=== PATIENT | male | born 1930 | race Caucasian/White ===

== ENCOUNTER 2016-12-15 09:55 | Inpatient (IN) | payer BC ==
--- NOTE | 2016-12-15 10:58 | PDOC ---
History of Present Illness - History of Present Illness Initial Comments: 12/15/16 11:36 Patient is an 86 year old male with no significant medical hx (takes aspirin in the morning) who is presenting to the ED with four days of frequent diarrhea and abdominal pain. The patient complains of abdominal pain to the lower quadrants bilaterally since the onset of his symptoms. He also reports one episode of vomiting four days ago. Daughter states that the patient might have endorsed blood in his stool to another family member who isn't present during interview. The patient denies any recent ravel, antibiotic use, or drinking from any lakes or streams. Denies fever, chills, back pain, constipation, chest pain, dysuria, or hematuria. Social Hx: No tobacco use. Reported ETOH use. Allergies: Penicillin <Renae Bautista - Last Filed: 12/15/16 12:51> - General History Source: Patient, Old Records Exam Limitations: No Limitations <Kassi Florez - Last Filed: 12/15/16 12:59> - General Chief Complaint: Pain Stated Complaint: DIARRHEA Time Seen by Provider: 12/15/16 10:58 Past History <Renae Bautista - Last Filed: 12/15/16 12:51> - Past Medical History Other medical history: none - Psycho/Social/Smoking Cessation Hx Anxiety: No Suicidal Ideation: No Smoking History: Never smoked Have you smoked in the past 12 months: No Information on smoking cessation initiated: No Hx Alcohol Use: No Drug/Substance Use Hx: No Substance Use Type: None <Kassi Florez - Last Filed: 12/15/16 12:59> - Past Medical History Allergies/Adverse Reactions: Allergies Allergy/AdvReac Type Severity Reaction Status Date / Time Penicillins Allergy Swelling Verified 12/15/16 10:04 Home Medications: Ambulatory Orders Aspirin [ASA -] 325 mg PO DAILY 12/24/13 Review of Systems - Review of Systems Comments:: 12/15/16 11:42 GENERAL/CONSTITUTIONAL: No fever or chills. No weakness. HEAD, EYES, EARS, NOSE AND THROAT: No change in vision. No ear pain or discharge. No sore throat. CARDIOVASCULAR: No chest pain or shortness of breath. RESPIRATORY: No cough, wheezing, or hemoptysis. GASTROINTESTINAL: Diarrhea, abdominal pain, nausea, vomiting. No constipation. GENITOURINARY: No dysuria, frequency, or change in urination. MUSCULOSKELETAL: No joint or muscle swelling or pain. No neck or back pain. ENDOCRINE: No increased thirst. No abnormal weight change. SKIN: No rash NEUROLOGIC: No headache, vertigo, loss of consciousness, or change in strength/ sensation. <MicheleRenae - Last Filed: 12/15/16 12:51> *Physical Exam - Vital Signs Last Vital Signs Temp Pulse Resp BP Pulse Ox 98.0 F 103 H 18 113/86 100 12/15/16 10:05 12/15/16 10:05 12/15/16 10:12/15/16 10:05 12/15/16 10:05 - Physical Exam Comments: 12/15/16 11:43 GENERAL: Awake, alert, and fully oriented, in no acute distress HEAD: No signs of trauma EYES: PERRLA, EOMI, sclera anicteric, conjunctiva clear ENT: Auricles normal inspection, hearing grossly normal, nares patent, oropharynx clear without exudates. Moist mucosa NECK: Normal ROM, supple, no lymphadenopathy, JVD, or masses LUNGS: Breath sounds equal, clear to auscultation bilaterally. No wheezes, and no crackles HEART: Regular rate and rhythm, normal S1 and S2, no murmurs, rubs or gallops ABDOMEN: Soft, bilateral lower quadrant tenderness left greater than right, normoactive bowel sounds. No guarding, no rebound. No masses EXTREMITIES: Normal range of motion, no edema. No clubbing or cyanosis. No cords, erythema, or tenderness NEUROLOGICAL: Cranial nerves II through XII grossly intact. Normal speech, normal gait SKIN: Warm, Dry, normal turgor, no rashes or lesions noted. HEMATOLOGIC/LYMPHATIC: No anemia, easy bleeding, or history of blood clots. ALLERGIC/IMMUNOLOGIC: No hives or skin allergy. <MicheleRenae - Last Filed: 12/15/16 12:51> - Vital Signs Last Vital Signs Temp Pulse Resp BP Pulse Ox 98.0 F 103 H 18 113/86 100 12/15/16 10:05 12/15/16 10:05 12/15/16 10:05 12/15/16 10:05 12/15/16 10:05 <Kassi Florez - Last Filed: 12/15/16 12:59> ED Treatment Course - LABORATORY CBC & Chemistry Diagram: 12/15/16 11:26 12/15/16 11:26 - RADIOLOGY Radiograph Interpretation: 12/15/16 11:58 Chest X-Ray Impression: No evidence of active pulmonary disease. Reported By: Danilo Land MD 12/15/16 12:51 Abdomen/Pelvis CT Impression: Findings are consistent with moderate rectosigmoid colitis with surrounding inflammatory changes but without free air or abscess. Significant rectal impaction presumably resulting in stercoral proctitis. Bladder wall thickening prostatic enlargement. Other findings as described. Clinical correlation advised. Reported By: Alex Hood MD <Renae Bautista - Last Filed: 12/15/16 12:51> - LABORATORY CBC & Chemistry Diagram: 12/15/16 11:26 12/15/16 11:26 <Kassi Florez - Last Filed: 12/15/16 12:59> Medical Decision Making - Medical Decision Making 12/15/16 11:20 86 y/o male with no reported PMHx presents to the ED with 4 day h/o lower abdominal pain and copious diarrhea. DDx includes but is not limited to: colitis, diverticulitis, anemia, dehydration, electrolyte abnormality, toxic/ metabolic derangement. Plan: 1. Labs 2. IVf for hydration 3. Pain management 4. CT abdomen/pelvis 5. Observe and re-evaluate 12/15/16 12:56 Addendum: Labs are reviewed and are noted in the EMR. The WBC is normal howver there is a bandemia of 16%. Ct scan of the abdomen and pelvis shows colonic colitis. Will get blood cultures and lactate, and will order flagyl and levaquin. The case was discussed with is PC, Dr Constantino. Will admit to inpatient for IV antibiotics and follow-up of blood cultures. <Kassi Florez - Last Filed: 12/15/16 12:59> *DC/Admit/Observation/Transfer - Attestations Scribe Attestion: 12/15/16 11:43 Documentation prepared by Renae Bautista, acting as medical office assistant for Kassi Florez MD. <Renae Bautista - Last Filed: 12/15/16 12:51> - Discharge Dispostion Admit: Yes - Attestations Physician Attestion: 12/15/16 11:22 I, Dr. Kassi Florez, attest that the scribes documentation that appears above has been prepared under my direction and personally reviewed by me in its entirety. I confirmed that the note above accurately reflects all work, treatment, procedures, and medical decision-making performed by me. <Kassi Florez - Last Filed: 12/15/16 12:59> Diagnosis at time of Disposition: Lower abdominal pain, Diarrhea, Colitis, Bandemia - Discharge Dispostion Condition at time of disposition: Stable
[2016-12-15] MEDS ORDERED: SODIUM CHLORIDE 1,000 ML IV STA (11:14)
[2016-12-15 11:37] LABS: MCH 28.4 pg (25.7-33.7); PLATELET COUNT 192 K/MM3 (134-434); RDW 15.7 % (11.9-15.9); WHITE BLOOD COUNT 7.4 K/mm3 (4.0-10.0)
[2016-12-15 12:01] LABS: ANION GAP 11 (8-16); BILIRUBIN,TOTAL 1.1 mg/dL (0.2-1.0); CALCIUM 8.4 mg/dL (8.5-10.1); CO2 24 mmol/L (21-32); COCKROFT - GAULT 56.76; GLUCOSE,RANDOM 113 mg/dL (74-106); MAGNESIUM 2.3 mg/dL (1.8-2.4); PHOSPHOROUS 2.6 mg/dL (2.5-4.9); SGOT/AST 23 U/L (15-37); SGPT/ALT 17 U/L (12-78); TOT PROT 5.4 g/dl (6.4-8.2)
[2016-12-15 12:02] LABS: ALK PHOS 61 U/L (45-117); TROPONIN I < 0.02 ng/ml (0.00-0.05)
[2016-12-15 12:39] LABS: PLATELET ESTIMATE ADEQUATE (NORMAL)
[2016-12-15] MEDS ORDERED: METRONIDAZOLE 500 MG PREMIXED 100 ML IVPB ONE ×2 (12:52→13:02)
[2016-12-15] MEDS ORDERED: LEVOFLOXACIN 750 MG IVPB 150 ML IVPB ONE (12:52)
[2016-12-15] MEDS ORDERED: LEVOFLOXACIN 500 MG IVPB 100 ML IVPB ONE (13:03)
--- NOTE | 2016-12-15 13:59 | EKG ---
Test Reason : Blood Pressure : / mmHG Vent. Rate : 080 BPM Atrial Rate : 080 BPM P-R Int : 164 ms QRS Dur : 098 ms QT Int : 368 ms P-R-T Axes : -13 -38 007 degrees QTc Int : 424 ms SINUS RHYTHM WITH OCCASIONAL PREMATURE VENTRICULAR COMPLEXES LEFT AXIS DEVIATION ABNORMAL ECG WHEN COMPARED WITH ECG OF 08-FEB-2010 16:27, NO SIGNIFICANT CHANGE WAS FOUND Confirmed by MAME DOWNEY MD ([id number]) on 12/15/2016 1:59:21 PM Referred By: Confirmed By:MAME DOWNEY MD
[2016-12-15] MEDS ORDERED: LEVOFLOXACIN 250 MG IVPB 50 ML IVPB ONE (15:52)
--- NOTE | 2016-12-15 23:10 | HP ---
Admitting History and Physical - Primary Care Physician PCP: Jesus Constantino - Admission Chief Complaint: Diarrhea History of Present Illness: Pt with diarrhea and lower abdominal discomfort for few days, came to ER with his and daugter. Abd/ pelvis CT scan is c/w colitis. pt was admitted for abtx treatment. History Source: Patient Limitations to Obtaining History: Poor Historian - Past Medical History Additional Past Medical History: Alcohol abuse- he drinks daily 3-5 drink (now vodka) - Smoking History Smoking history: Never smoked Have you smoked in the past 12 months: No - Alcohol/Substance Use Hx Alcohol Use: No Home Medications - Allergies Allergies/Adverse Reactions: Allergies Allergy/AdvReac Type Severity Reaction Status Date / Time Penicillins Allergy Swelling Verified 12/15/16 10:04 - Home Medications Home Medications: Ambulatory Orders Aspirin [ASA -] 325 mg PO DAILY 12/24/13 Review of Systems - Review of Systems Constitutional: denies: Chills, Fever Eyes: denies: Blurred Vision, Double Vision HENT: denies: Difficult Swallowing, Ear Discharge, Ear Pain, Epistaxis, Nasal Congestion Neck: denies: Lumps, Stiffness Cardiovascular: denies: Chest Pain, Edema, Palpitations, Shortness of Breath Respiratory: denies: Cough, Hemoptysis, SOB, Wheezing Gastrointestinal: reports: Diarrhea. denies: Abdominal Pain, Constipation, Dysphagia, Nausea, Rectal Bleeding, Vomiting Genitourinary: denies: Discharge, Dysuria Musculoskeletal: denies: Back Pain, Extremity Pain, Joint Pain Integumentary: denies: Bruising, Erythema, Rash Neurological: denies: Change in LOC, Change in Speech, Confusion Endocrine: denies: Excessive Sweating, Intolerance to Heat Hematology/Lymphatic: denies: Easily Bruised, Excessive Bleeding Psychiatric: denies: Anxiety, Depression Physical Examination Vital Signs: Vital Signs Temperature 98.0 F 12/15/16 10:05 Pulse Rate 80 12/15/16 18:38 Respiratory Rate 18 12/15/16 18:38 Blood Pressure 144/89 12/15/16 18:38 O2 Sat by Pulse Oximetry (%) 97 12/15/16 18:38 Constitutional: Yes: No Distress, Calm Eyes: Yes: Conjunctiva Clear, EOM Intact HENT: Yes: Normocephalic. No: Epistaxis, Rhinnorhea Neck: Yes: Trachea Midline. No: Lymphadenopathy Cardiovascular: Yes: Regular Rate and Rhythm, S1, S2 Respiratory: No: Regular, CTA Bilaterally, Rales Gastrointestinal: Yes: Normal Bowel Sounds, Soft, Tenderness (mild, in left and right LQ). No: Tenderness, Rebound ...Rectal Exam: Yes: Deferred Renal/: No: CVA Tenderness - Left, CVA Tenderness - Right Musculoskeletal: No: Joint Stiffness, Joint Swelling, Muscle Pain Extremities: No: Cool, Cyanosis Edema: No Integumentary: No: Erythema, Rash Neurological: Yes: Alert, Oriented, Cran Nerves II-XII Intact Psychiatric: Yes: Alert, Oriented Labs: reviewer Imaging - Results Chest X-ray: Report Reviewed Cat Scan: Report Reviewed Problem List - Problems (1) Acute colitis Code(s): K52.9 - NONINFECTIVE GASTROENTERITIS AND COLITIS, UNSPECIFIED Assessment/Plan IV abtx GI consult AM labs Full liquid diet
[2016-12-15] MEDS ORDERED: SODIUM CHLORIDE 1,000 ML IV SCH (23:15)
[2016-12-16] MEDS: METRONIDAZOLE 500 MG PREMIXED 100 ML IVPB SCH ×5 (00:18→20:50)
[2016-12-16 03:13] VITALS: BMI 24.0
[2016-12-16 08:09] LABS: MCH 28.6 pg (25.7-33.7); MCHC 33.4 g/dl (32.0-35.9); MEAN CELL VOLUME 85.6 fl (80-96); MEAN PLT VOLUME 8.2 fl (7.5-11.1); PLATELET COUNT 168 K/MM3 (134-434); RDW 15.7 % (11.9-15.9); WHITE BLOOD COUNT 5.1 K/mm3 (4.0-10.0)
[2016-12-16 08:39] LABS: ALBUMIN 2.6 g/dl (3.4-5.0); ANION GAP 12 (8-16); BILIRUBIN,TOTAL 0.9 mg/dL (0.2-1.0); CO2 21 mmol/L (21-32); CREATININE 0.7 mg/dL (0.7-1.3); GLUCOSE,RANDOM 89 mg/dL (74-106); SGOT/AST 15 U/L (15-37); SGPT/ALT 13 U/L (12-78)
[2016-12-16 08:40] LABS: ALK PHOS 51 U/L (45-117)
--- NOTE | 2016-12-16 09:46 | PN ---
Progress Note, Physician History of Present Illness: Pt still with lose stool, no abd pain, no fever. Pt w/o cough, CP, N, V. - Current Medication List Current Medications: Active Medications Metronidazole (Flagyl 500mg Premixed Ivpb -) 100 mls @ 100 mls/hr IVPB Q6H-IV ELEN Last Admin: 12/16/16 08:28 Dose: 100 mls/hr Levofloxacin (Levaquin 500 Mg Premixed Ivpb -) 100 mls @ 100 mls/hr IVPB DAILY ELEN Sodium Chloride (Normal Saline -) 1,000 mls @ 50 mls/hr IV ASDIR ELEN Stop: 12/16/16 23:13 Last Admin: 12/16/16 00:17 Dose: 50 mls/hr - Objective Vital Signs: Vital Signs Temperature 99 F 12/16/16 06:54 Pulse Rate 85 12/16/16 06:54 Respiratory Rate 20 12/16/16 06:54 Blood Pressure 154/81 12/16/16 06:54 O2 Sat by Pulse Oximetry (%) 98 12/15/16 23:30 Constitutional: Yes: No Distress, Calm Cardiovascular: Yes: Regular Rate and Rhythm, S1, S2 Respiratory: Yes: Regular, CTA Bilaterally. No: Rales Gastrointestinal: Yes: Normal Bowel Sounds, Soft, Hyperactive Bowel Sounds, Tenderness (minimal in LQs) Edema: No Neurological: Yes: Alert, Oriented Labs: CBC, BMP 12/16/16 07:55 12/16/16 07:15 Problem List - Problems (1) Acute colitis Code(s): K52.9 - NONINFECTIVE GASTROENTERITIS AND COLITIS, UNSPECIFIED (2) Colitis Code(s): K52.9 - NONINFECTIVE GASTROENTERITIS AND COLITIS, UNSPECIFIED (3) Fecal impaction in rectum Code(s): K56.41 - FECAL IMPACTION (4) Lower abdominal pain Code(s): R10.30 - LOWER ABDOMINAL PAIN, UNSPECIFIED Assessment/Plan IV abtx GI consult; case was d/w Dr. Anatoly Rob Colorectal Sx consult. AM labs Full liquid diet.
[2016-12-16] MEDS: LEVOFLOXACIN 500 MG IVPB 100 ML IVPB SCH (10:36)
--- NOTE | 2016-12-16 11:44 | CONSULT ---
Consult Consult Specialty:: colorectal surgery Reason for Consultation:: colitis? fecal impaction? - History of Present Illness Chief Complaint: none History of Present Illness: pt is a 86M who presented with freq diarrhea/incontinence and some lower abd pain. workup in ED includes CT showing large amount of fecal material in rectum and some colitis just proximal to it. Patient had large BM this morning. Patient and his family endorse alot of liquid stool with urgency/incontinence. hx of 3-5 drinks a day? - History Source History Provided By: Patient, Family Member, Medical Record - Alcohol/Substance Use Hx Alcohol Use: No - Smoking History Smoking history: Never smoked Have you smoked in the past 12 months: No Home Medications - Allergies Allergies/Adverse Reactions: Allergies Allergy/AdvReac Type Severity Reaction Status Date / Time Penicillins Allergy Swelling Verified 12/15/16 10:04 - Home Medications Home Medications: Ambulatory Orders Aspirin [ASA -] 325 mg PO DAILY 12/24/13 Family Disease History - Family Disease History Family History: Unremarkable Review of Systems - Review of Systems Constitutional: reports: Loss of Appetite (but no weight loss). denies: Chills , Fever Eyes: denies: Blind Spots, Blurred Vision HENT: denies: Difficult Swallowing, Ear Discharge Neck: denies: Lumps, Pain on Movement Cardiovascular: denies: Chest Pain, Edema Respiratory: denies: Cough, Exercise Intolerance Gastrointestinal: reports: Abdominal Pain, Diarrhea Genitourinary: denies: Burning, Discharge Breasts: denies: Discharge from Nipple, Lumps Musculoskeletal: denies: Back Pain, Crepitus Integumentary: denies: Blister, Bruising Neurological: denies: Change in LOC, Change in Speech Endocrine: denies: Excessive Sweating, Flushing Hematology/Lymphatic: denies: Easily Bruised, Excessive Bleeding Psychiatric: denies: Altered Sleep Pattern, Anxiety Physical Exam Vital Signs: Vital Signs Temperature 97.9 F 12/16/16 10:31 Pulse Rate 76 12/16/16 10:31 Respiratory Rate 20 12/16/16 10:31 Blood Pressure 134/70 12/16/16 10:31 O2 Sat by Pulse Oximetry (%) 98 12/15/16 23:30 Constitutional: Yes: No Distress, Calm Eyes: Yes: Conjunctiva Clear, EOM Intact HENT: Yes: Atraumatic, Normocephalic Neck: Yes: Supple, Trachea Midline Cardiovascular: Yes: Regular Rate and Rhythm Respiratory: Yes: Regular, CTA Bilaterally Gastrointestinal: Yes: Soft. No: Distention, Tenderness ...Rectal Exam: Yes: Other (good sphincter tone. patients bottom area covered with semi solid stool. limited exam but no stool appreciated in rectal vault. could not see any kind of fissure due to stool.) Renal/: No: CVA Tenderness - Left, CVA Tenderness - Right Breast(s): No: Nipple Inversion, Skin Changes Musculoskeletal: No: Joint Stiffness, Joint Swelling Extremities: No: Calf Tenderness, Erythema Integumentary: No: Bruising, Erythema Neurological: Yes: Alert Psychiatric: Yes: Alert Labs: CBC, BMP 12/16/16 07:55 12/16/16 07:15 Imaging - Results Cat Scan: Report Reviewed, Image Reviewed Problem List - Problems (1) Acute colitis Assessment/Plan: colitis on CT likely sterocoral in nature from fecal impaction -his diarrhea could be due to overflow incontinence from fecal impaction -recommend dulcolax suppository QD or QOD. -recommend fiber and increased water intake ulices with alcohol use -needs outpt management of these symptoms -reg diet -colonoscopy as per GI Code(s): K52.9 - NONINFECTIVE GASTROENTERITIS AND COLITIS, UNSPECIFIED (2) Lower abdominal pain Code(s): R10.30 - LOWER ABDOMINAL PAIN, UNSPECIFIED
[2016-12-16 13:33] LABS: URINE APPEARANCE CLEAR; URINE BILIRUBIN NEGATIVE (NEGATIVE); URINE BLOOD NEGATIVE (NEGATIVE); URINE COLOR YELLOW; URINE GLUCOSE (UA) NEGATIVE (NEGATIVE); URINE KETONE 1+ (NEGATIVE); URINE NITRITE NEGATIVE (NEGATIVE); URINE PROTEIN NEGATIVE (NEGATIVE); URINE UROBILINOGEN NEGATIVE E.U./dl (0.2-1.0)
[2016-12-16 13:34] LABS: URINE LEUK ESTERASE TRACE (NEGATIVE)
[2016-12-16 13:35] LABS: URINE MUCUS RARE; URINE RBC 1 /hpf (0-3); URINE WBC <1 /hpf (3-5)
--- NOTE | 2016-12-16 15:54 | CON.GI ---
Consult Consult Specialty:: GI Referred by:: Dr. Jesus Constantino Reason for Consultation:: Abnormal CT scan - History of Present Illness Chief Complaint: Patient poor historian, confused even about where he was and how he got here History of Present Illness: History per chart. 86M admitted for evaluation of diarrhea and lower abdominal dioscomfort. Mr. Ramirez currently denies any complaints and is quite a poor historian. He does not recall his medical history. I obtained more information from his significant other. There has been no rectal bleeding. He has been having loose bowel movements for 5 days. Bowel habits have been reported. The history obtained from the H&P is that he drinks 3-5 vodka drinks per day and confirmed by his significant other. I contacted his daughter Pooja [phone]. She reiterated the above history and says that he does get confused. In review of the [employer] system it appears that he had a colonoscopy performed [place] [address] Villegas that led to the removal of a transverse colon tubular adenoma. - History Source History Provided By: Medical Record Limitations to Obtaining History: Poor Historian - Past Medical History Additional Medical History: left shoulder fracture - Alcohol/Substance Use Hx Alcohol Use: Yes - Smoking History Smoking history: Smoker current status UNK Have you smoked in the past 12 months: No - Social History Usual Living Arrangement: With Significant Other Place of : [facility] History of Recent Travel: No Home Medications - Allergies Allergies/Adverse Reactions: Allergies Allergy/AdvReac Type Severity Reaction Status Date / Time Penicillins Allergy Swelling Verified 12/15/16 10:04 - Home Medications Home Medications: Ambulatory Orders Aspirin [ASA -] 325 mg PO DAILY 12/24/13 Family Disease History - Family Disease History Family History: Unable to Obtain Review of Systems Unable to obtain ROS, reason: Patient confused - Review of Systems Cardiovascular: denies: Chest Pain Gastrointestinal: reports: Diarrhea. denies: Abdominal Pain (currently denies however admitted with complaint of lower abdominal pain) Physical Exam-GI Vital Signs: Vital Signs Temperature 97.4 F L 12/16/16 15:06 Pulse Rate 84 12/16/16 15:06 Respiratory Rate 20 12/16/16 15:06 Blood Pressure 138/76 12/16/16 15:06 O2 Sat by Pulse Oximetry (%) 98 12/15/16 23:30 Constitutional: Yes: Calm Eyes: No: Sclera Icterus Cardiovascular: Yes: Regular Rate and Rhythm, Murmur (+ systolic / holosystoic murmur at left and right sternal border) Respiratory: Yes: Diminished (at bases, poor insp effort) Gastrointestinal Inspection: No: Distention ...Auscultate: Yes: Normoactive Bowel Sounds ...Palpate: No: Hepatomegaly, Splenomegaly, Tenderness ...Percussion: No: Tympanitic ...Rectal Exam: Yes: Guaiac Positive (tracely guaiac positive yellow stool. No palpable fecal impaction) Edema: No Labs: CBC, BMP 12/16/16 07:55 12/16/16 07:15 Imaging - Results Cat Scan: Report Reviewed, Image Reviewed Problem List - Problems (1) Fecal impaction in rectum Assessment/Plan: Agree with Dr. Kebede's evaluation. Suspect fecal impaction with stercoral colitis and overflow incontinence / paradoxical diarrhea leading to his fecal incontinence Advise: Bowel lavage I did discuss colonoscopy with his daughter Pooja regarding the above. We did discuss colonoscopy for further evaluation and the risks involved like but not limited to bleeding, perforation requiring surgery to repair, infection and sedation medication effects all of which could be potentially life threatening. She did agree wioth evaluation of his significant heart murmur prior to proceeding with invasive testing. I ordered an echo. She did say that if cancer was found if the colonoscopy was performed, she would not want anything done. I advised that she discuss this as well as her father's worsening episodes of confusion with Dr. Constantino. Code(s): K56.41 - FECAL IMPACTION
[2016-12-16] MEDS ORDERED: PEG 3350/NA SULF BICARB CL/KCL 4000 ML SOLN.RECON PO ONE (16:20)
[2016-12-17] MEDS: METRONIDAZOLE 500 MG PREMIXED 100 ML IVPB SCH ×4 (02:17→21:20)
[2016-12-17 08:48] LABS: MCH 28.7 pg (25.7-33.7); MCHC 33.5 g/dl (32.0-35.9); MEAN CELL VOLUME 85.6 fl (80-96); MEAN PLT VOLUME 8.3 fl (7.5-11.1); PLATELET COUNT 183 K/MM3 (134-434); RDW 15.3 % (11.9-15.9); WHITE BLOOD COUNT 4.9 K/mm3 (4.0-10.0)
[2016-12-17 09:09] LABS: INR 1.3 (0.82-1.09); PROTHROMBIN TIME (PATIENT) 14.4 SEC (9.98-11.88)
[2016-12-17 09:12] LABS: ACTIVATED PTT 27.9 SECONDS (26.9-34.4)
[2016-12-17 09:17] LABS: CALCIUM 8.4 mg/dL (8.5-10.1); COCKROFT - GAULT 75.6; CREATININE 0.7 mg/dL (0.7-1.3)
[2016-12-17] MEDS: LEVOFLOXACIN 500 MG IVPB 100 ML IVPB SCH (09:25)
[2016-12-17 10:21] LABS: PLATELET ESTIMATE ADEQUATE (NORMAL)
--- NOTE | 2016-12-17 13:15 | PN ---
Progress Note, Physician History of Present Illness: Pt still with lose stool, no abd pain, no fever. Pt w/o cough, CP, N, V. - Current Medication List Current Medications: Active Medications Metronidazole (Flagyl 500mg Premixed Ivpb -) 100 mls @ 100 mls/hr IVPB Q6H-IV ELEN Last Admin: 12/17/16 09:24 Dose: 100 mls/hr Levofloxacin (Levaquin 500 Mg Premixed Ivpb -) 100 mls @ 100 mls/hr IVPB DAILY ELEN Last Admin: 12/17/16 09:25 Dose: 100 mls/hr - Objective Vital Signs: Vital Signs Temperature 98.3 F 12/17/16 06:00 Pulse Rate 84 12/17/16 06:00 Respiratory Rate 20 12/17/16 06:00 Blood Pressure 156/71 12/17/16 06:00 O2 Sat by Pulse Oximetry (%) 99 12/16/16 21:00 Constitutional: Yes: No Distress, Calm Cardiovascular: Yes: Regular Rate and Rhythm, S1, S2 Respiratory: Yes: Regular, CTA Bilaterally. No: Rales Gastrointestinal: Yes: Normal Bowel Sounds, Soft, Distention Edema: Yes Edema: LLE: 2+, RLE: 2+ Neurological: Yes: Alert, Oriented Labs: CBC, BMP 12/17/16 07:30 12/17/16 07:30 INR, PTT INR 1.30 (0.82-1.09) H 12/17/16 07:30 Problem List - Problems (1) Acute colitis Code(s): K52.9 - NONINFECTIVE GASTROENTERITIS AND COLITIS, UNSPECIFIED (2) Colitis Code(s): K52.9 - NONINFECTIVE GASTROENTERITIS AND COLITIS, UNSPECIFIED (3) Fecal impaction in rectum Code(s): K56.41 - FECAL IMPACTION (4) Lower abdominal pain Code(s): R10.30 - LOWER ABDOMINAL PAIN, UNSPECIFIED Assessment/Plan IV abtx GI consult appreciated. Colorectal Sx consult appreciated. Pt needs to drink Golytely- poor intake so far. Familly at bedside AM labs Full liquid diet.
--- NOTE | 2016-12-17 16:25 | PN ---
Progress Note (short form) - Note Progress Note: Patient slowly drinking golytely. + loose bowel movements Daughters present. they say that his father from colon cancer We again discussed colonoscopy for evaluation of the colitis seen on CT scan / exclude alternate intraluminal pathology. We discussed potential risks of the procedure like but not limited to bleeding, perforation requiring to repair, infection sedation and medication effects all of which could be potentially life threatening. They have agreed to the procedure. Problem List - Problems (1) Fecal impaction in rectum Code(s): K56.41 - FECAL IMPACTION
[2016-12-18] MEDS ORDERED: DEXTROSE 5%-0.45% SALINE 1,000 ML IV SCH (00:01)
[2016-12-18] MEDS: METRONIDAZOLE 500 MG PREMIXED 100 ML IVPB SCH ×4 (02:06→20:55)
[2016-12-18 08:51] LABS: MCH 28.4 pg (25.7-33.7); MCHC 33.5 g/dl (32.0-35.9); MEAN CELL VOLUME 84.8 fl (80-96); MEAN PLT VOLUME 8.4 fl (7.5-11.1); PLATELET COUNT 293 K/MM3 (134-434); RDW 15.3 % (11.9-15.9); WHITE BLOOD COUNT 8.2 K/mm3 (4.0-10.0)
[2016-12-18 09:24] LABS: ALBUMIN 2.8 g/dl (3.4-5.0); ALK PHOS 52 U/L (45-117); ANION GAP 11 (8-16); BILIRUBIN,TOTAL 0.7 mg/dL (0.2-1.0); CALCIUM 8.3 mg/dL (8.5-10.1); CO2 25 mmol/L (21-32); COCKROFT - GAULT 66.15; CREATININE 0.8 mg/dL (0.7-1.3); GLUCOSE,RANDOM 120 mg/dL (74-106); SGOT/AST 15 U/L (15-37); SGPT/ALT 14 U/L (12-78); TOT PROT 5.3 g/dl (6.4-8.2)
[2016-12-18] MEDS: LEVOFLOXACIN 500 MG IVPB 100 ML IVPB SCH (09:42)
[2016-12-18 09:49] LABS: PLATELET ESTIMATE ADEQUATE (NORMAL)
--- NOTE | 2016-12-18 10:40 | PN ---
Progress Note, Physician History of Present Illness: Pt still with lose stool, no abd pain, no fever. Pt w/o cough, CP, N, V. Pt. partially compliant with Golytely; received enema; pt for colonoscopy this AM - Current Medication List Current Medications: Active Medications Metronidazole (Flagyl 500mg Premixed Ivpb -) 100 mls @ 100 mls/hr IVPB Q6H-IV ELEN Last Admin: 12/18/16 09:42 Dose: 100 mls/hr Levofloxacin (Levaquin 500 Mg Premixed Ivpb -) 100 mls @ 100 mls/hr IVPB DAILY LEEN Last Admin: 12/18/16 09:42 Dose: 100 mls/hr Dextrose/Sodium Chloride (D5-1/2ns -) 1,000 mls @ 75 mls/hr IV ASDIR ELEN Last Admin: 12/18/16 02:06 Dose: 75 mls/hr - Objective Vital Signs: Vital Signs Temperature 98.8 F 12/18/16 06:00 Pulse Rate 86 12/18/16 06:00 Respiratory Rate 20 12/18/16 06:00 Blood Pressure 137/62 12/18/16 06:00 O2 Sat by Pulse Oximetry (%) 99 12/17/16 21:00 Constitutional: Yes: No Distress, Calm Cardiovascular: Yes: Regular Rate and Rhythm, S1, S2 Respiratory: Yes: Regular, CTA Bilaterally. No: Rhonchi Gastrointestinal: Yes: Normal Bowel Sounds, Soft. No: Palpable Mass, Tenderness Edema: No Neurological: Yes: Alert, Oriented Labs: CBC, BMP 12/18/16 08:00 12/18/16 08:00 INR, PTT INR 1.30 (0.82-1.09) H 12/17/16 07:30 Problem List - Problems (1) Acute colitis Code(s): K52.9 - NONINFECTIVE GASTROENTERITIS AND COLITIS, UNSPECIFIED (2) Colitis Code(s): K52.9 - NONINFECTIVE GASTROENTERITIS AND COLITIS, UNSPECIFIED (3) Fecal impaction in rectum Code(s): K56.41 - FECAL IMPACTION (4) Lower abdominal pain Code(s): R10.30 - LOWER ABDOMINAL PAIN, UNSPECIFIED Assessment/Plan IV abtx GI consult appreciated. Colorectal Sx consult appreciated. For colonoscopy AM labs
[2016-12-18] MEDS ORDERED: PROPOFOL 20 ML ONE ×2 (11:22)
--- NOTE | 2016-12-18 12:25 | PN ---
Progress Note (short form) - Note Progress Note: Colonoscopy report placed in procedural section of physical chart and to be scanned into [employer] Problem List - Problems (1) Fecal impaction in rectum Code(s): K56.41 - FECAL IMPACTION
[2016-12-18] MEDS: MESALAMINE 800 MG TABLET.DR PO SCH ×2 (16:38→21:51)
[2016-12-18] MEDS: MESALAMINE 4 GM/60 ML ENEMA RC SCH (21:52)
[2016-12-19] MEDS: METRONIDAZOLE 500 MG PREMIXED 100 ML IVPB SCH ×4 (02:58→21:31)
[2016-12-19] MEDS: MESALAMINE 800 MG TABLET.DR PO SCH ×3 (06:03→21:32)
[2016-12-19 07:33] LABS: MCH 28.6 pg (25.7-33.7); MCHC 33.9 g/dl (32.0-35.9); MEAN CELL VOLUME 84.3 fl (80-96); PLATELET COUNT 181 K/MM3 (134-434); RDW 15.3 % (11.9-15.9); WHITE BLOOD COUNT 4.5 K/mm3 (4.0-10.0)
[2016-12-19 08:00] LABS: ANION GAP 10 (8-16); CALCIUM 7.5 mg/dL (8.5-10.1); CO2 24 mmol/L (21-32); CREATININE 0.7 mg/dL (0.7-1.3); GLUCOSE,RANDOM 109 mg/dL (74-106)
[2016-12-19] MEDS: POLYETHYLENE GLYCOL 3350 119 GM BTL PO SCH (09:16)
--- NOTE | 2016-12-19 10:27 | PATH ---
Surgical Pathology Report Patient Name: ARMANDO SALAZAR Med. Rec. #: [id number] /Age/Gender: 1930 (Age: 86) / M Account: [id number] Location: [facility] MED/SURG Taken: 12/18/2016 Received: 12/18/2016 Reported: 12/19/2016 Physicians: Galen Moore M.D. Specimen(s) Received A: BX LEFT COLON B: BX POLYP SIGMOID C: BX DISTAL SIGMOID Clinical History Colitis Diverticulosis, colitis Rule out ischemic colitis and IBD Final Diagnosis A. COLON, LEFT, BIOPSY: ISCHEMIC COLITIS. B. COLON, PROXIMAL SIGMOID, BIOPSY: COLONIC MUCOSA WITH EXTENSIVE ULCERATION, WITH FOCAL ASSOCIATED ACUTE INFLAMMATION. NO ARCHITECTURAL DISTORTION, GRANULOMAS, OR DYSPLASIA IDENTIFIED. C. COLON, DISTAL SIGMOID, BIOPSY: MULTIPLE PORTIONS OF FIBRINOPURULENT MATERIAL CONSISTENT WITH ULCER BASE, ALONG WITH SCANT COLONIC MUCOSA WITH FOCAL ULCERATION AND ACUTE INFLAMMATION. NO ARCHITECTURAL DISTORTION, GRANULOMAS, OR DYSPLASIA IDENTIFIED. Electronically Signed Juan Manuel Keller M.D. Gross Description A. Received in formalin, labeled "biopsy left colon" are 2 link, irregular portions of soft tissue measuring 0.1 and 0.4 cm. in greatest dimension. The specimens are submitted in toto in one cassette. B. Received in formalin, labeled "biopsy proximal sigmoid" are 6 link, irregular portions of soft tissue averaging 0.1 cm. in greatest dimension. The specimens are submitted in toto in one cassette. C. Received in formalin, labeled "biopsy distal sigmoid" are 5 link, irregular portions of soft tissue ranging from 0.2-0.3 cm. in greatest dimension. The specimens are submitted in toto in one cassette. DL/12/18/2016 saudi/12/18/2016
--- NOTE | 2016-12-19 10:29 | PN ---
Progress Note, Physician History of Present Illness: Pt still with lose stool, no abd pain, no fever. Pt w/o cough, CP, N, V. Pt. c/o Left knee pain, woke him up from sleep, no trauma - Current Medication List Current Medications: Active Medications Metronidazole (Flagyl 500mg Premixed Ivpb -) 100 mls @ 100 mls/hr IVPB Q6H-IV [facility] Last Admin: 12/19/16 09:15 Dose: 100 mls/hr Levofloxacin (Levaquin 500 Mg Premixed Ivpb -) 100 mls @ 100 mls/hr IVPB DAILY [facility] Last Admin: 12/18/16 09:42 Dose: 100 mls/hr Mesalamine (Rowasa Enema -) 4 gm RC HS [facility] Last Admin: 12/18/16 21:52 Dose: 4 gm Mesalamine (Asacol Hd -) 800 mg PO TID [facility] Last Admin: 12/19/16 06:03 Dose: 800 mg Polyethylene Glycol (Miralax (For Daily Use) -) 17 gm PO DAILY [facility] Last Admin: 12/19/16 09:16 Dose: Not Given - Objective Vital Signs: Vital Signs Temperature 97.8 F 12/19/16 09:10 Pulse Rate 96 H 12/19/16 09:10 Respiratory Rate 20 12/19/16 09:10 Blood Pressure 116/65 12/19/16 09:10 O2 Sat by Pulse Oximetry (%) 100 12/18/16 21:00 Constitutional: Yes: No Distress, Calm Cardiovascular: Yes: Regular Rate and Rhythm, S1, S2 Respiratory: Yes: Regular, CTA Bilaterally. No: Rales Gastrointestinal: Yes: Normal Bowel Sounds, Soft. No: Palpable Mass Extremities: Yes: Other (left Knee is mildly swollen, painful with palpation of medial aspect, no calor, no buise, no erythema, no discharge) Edema: No Neurological: Yes: Alert, Oriented Labs: CBC, BMP 12/19/16 06:15 12/19/16 06:15 INR, PTT INR 1.30 (0.82-1.09) H 12/17/16 07:30 Problem List - Problems (1) Acute colitis Code(s): K52.9 - NONINFECTIVE GASTROENTERITIS AND COLITIS, UNSPECIFIED (2) Colitis Code(s): K52.9 - NONINFECTIVE GASTROENTERITIS AND COLITIS, UNSPECIFIED (3) Fecal impaction in rectum Code(s): K56.41 - FECAL IMPACTION (4) Lower abdominal pain Code(s): R10.30 - LOWER ABDOMINAL PAIN, UNSPECIFIED (5) Hypokalemia Code(s): E87.6 - HYPOKALEMIA (6) Poor appetite Code(s): R63.0 - ANOREXIA Assessment/Plan IV abtx GI consult appreciated. Colorectal Sx consult appreciated. s/p colonoscopy ( + colitis) AM labs
[2016-12-19] MEDS: LEVOFLOXACIN 500 MG IVPB 100 ML IVPB SCH (10:55)
--- NOTE | 2016-12-19 13:25 | CONSULT ---
Consult - text type - Consultation Consultation Note: FULL CONSULT DICTATED IMP: LEFT KNEE DJD AND ACUTE GOUTY FLARE PLAN: NSAIDS, ANTIGOUT MEDICATION, ICE
--- NOTE | 2016-12-19 14:13 | CONS ---
DATE OF CONSULTATION: 12/19/2016 ORTHOPEDIC CONSULTATION/[facility] Patient is an 86-year-old male complaining of acute left knee pain x1 day. 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 Patient was admitted to the hospital after a bout of diarrhea. PHYSICAL EXAMINATION: Patient has no effusion, but does have some significant tenderness obtained with range of motion over the left knee, while very, very sensitive throughout. Calf is soft, nontender. Good motion, hip, ankle, and toes. IMAGING: X-rays showed DJD, left knee. IMPRESSION: Gouty flare of his left degenerative knee secondary to dehydration from his diarrhea. PLAN: Hydration, nonsteroidals, anti-gout medication, ice and elevation. Orthopedics will follow. YAMILET ROBERTO M.D. [id number]
[2016-12-19] MEDS ORDERED: PT OWN MED DRAWER 7, Y5N ONE ×3 (14:46→21:01)
[2016-12-19] MEDS: KCL 10 MEQ IVPB 100 ML IVPB SCH ×2 (21:30→22:45)
[2016-12-19] MEDS: MESALAMINE 4 GM/60 ML ENEMA RC SCH (21:32)
[2016-12-20] MEDS: METRONIDAZOLE 500 MG PREMIXED 100 ML IVPB SCH ×4 (02:00→21:26)
[2016-12-20] MEDS: KCL 10 MEQ IVPB 100 ML IVPB SCH ×4 (03:05→17:16)
[2016-12-20] MEDS: MESALAMINE 800 MG TABLET.DR PO SCH ×3 (06:28→21:27)
[2016-12-20 08:37] LABS: MCH 28.3 pg (25.7-33.7); MCHC 33.9 g/dl (32.0-35.9); MEAN CELL VOLUME 83.6 fl (80-96); MEAN PLT VOLUME 8.4 fl (7.5-11.1); PLATELET COUNT 194 K/MM3 (134-434); RDW 15.4 % (11.9-15.9); WHITE BLOOD COUNT 4.9 K/mm3 (4.0-10.0)
[2016-12-20 08:55] LABS: ANION GAP 13 (8-16); CALCIUM 8.1 mg/dL (8.5-10.1); CO2 22 mmol/L (21-32); CREATININE 0.6 mg/dL (0.7-1.3); GLUCOSE,RANDOM 122 mg/dL (74-106); MAGNESIUM 1.7 mg/dL (1.8-2.4)
[2016-12-20] MEDS ORDERED: PT OWN MED DRAWER 7, Y5N ONE (10:09)
[2016-12-20] MEDS: LEVOFLOXACIN 500 MG IVPB 100 ML IVPB SCH (10:14)
[2016-12-20] MEDS: POLYETHYLENE GLYCOL 3350 119 GM BTL PO SCH (10:16)
[2016-12-20] MEDS ORDERED: MAGNESIUM SULF 50% (8.12 MEQ/2 ML-1 GM VIAL) IVPB ONE ×2 (12:00→16:30)
--- NOTE | 2016-12-20 15:08 | PN ---
Progress Note, Physician History of Present Illness: Pt still with lose stool, no abd pain, no fever. Pt w/o cough, CP, N, V. Pt. c/o Left knee pain- seen by Ortho - Current Medication List Current Medications: Active Medications Metronidazole (Flagyl 500mg Premixed Ivpb -) 100 mls @ 100 mls/hr IVPB Q6H-IV [facility] Last Admin: 12/20/16 10:14 Dose: 100 mls/hr Levofloxacin (Levaquin 500 Mg Premixed Ivpb -) 100 mls @ 100 mls/hr IVPB DAILY [facility] Last Admin: 12/20/16 10:14 Dose: 100 mls/hr Mesalamine (Rowasa Enema -) 4 gm RC HS [facility] Last Admin: 12/19/16 21:32 Dose: 4 gm Mesalamine (Asacol Hd -) 800 mg PO TID [facility] Last Admin: 12/20/16 13:46 Dose: 800 mg Polyethylene Glycol (Miralax (For Daily Use) -) 17 gm PO DAILY [facility] Last Admin: 12/20/16 10:16 Dose: 17 gm - Objective Vital Signs: Vital Signs Temperature 98.4 F 12/20/16 10:00 Pulse Rate 92 H 12/20/16 10:00 Respiratory Rate 18 12/20/16 10:00 Blood Pressure 133/59 12/20/16 10:00 O2 Sat by Pulse Oximetry (%) 95 12/20/16 09:00 Constitutional: Yes: No Distress, Calm Cardiovascular: Yes: Regular Rate and Rhythm, S1, S2 Respiratory: Yes: Regular, CTA Bilaterally. No: Rales Gastrointestinal: Yes: Normal Bowel Sounds, Soft. No: Palpable Mass, Tenderness Extremities: Yes: Other (painful medial aspect of the left knee (no change in exmination since yesterday)) Edema: No Neurological: Yes: Alert, Oriented Labs: CBC, BMP 12/20/16 06:35 12/20/16 06:35 INR, PTT INR 1.30 (0.82-1.09) H 12/17/16 07:30 Problem List - Problems (1) Acute colitis Code(s): K52.9 - NONINFECTIVE GASTROENTERITIS AND COLITIS, UNSPECIFIED (2) Colitis Code(s): K52.9 - NONINFECTIVE GASTROENTERITIS AND COLITIS, UNSPECIFIED (3) Fecal impaction in rectum Code(s): K56.41 - FECAL IMPACTION (4) Lower abdominal pain Code(s): R10.30 - LOWER ABDOMINAL PAIN, UNSPECIFIED (5) Hypokalemia Code(s): E87.6 - HYPOKALEMIA (6) Poor appetite Code(s): R63.0 - ANOREXIA (7) Hypomagnesemia Code(s): E83.42 - HYPOMAGNESEMIA (8) Left medial knee pain Assessment/Plan: Seen by charla Snowden'ed with Gout Code(s): M25.562 - PAIN IN LEFT KNEE (9) Gout attack Code(s): M10.9 - GOUT, UNSPECIFIED Assessment/Plan IV abtx GI consult appreciated. Colorectal Sx consult appreciated. s/p colonoscopy ( + colitis) To replete K, Mg Add Colchicine PRN AM labs
[2016-12-20] MEDS: MESALAMINE 4 GM/60 ML ENEMA RC SCH (21:26)
[2016-12-21] MEDS: METRONIDAZOLE 500 MG PREMIXED 100 ML IVPB SCH ×4 (02:19→21:00)
[2016-12-21] MEDS: MESALAMINE 800 MG TABLET.DR PO SCH ×3 (06:20→22:07)
[2016-12-21] MEDS ORDERED: PT OWN MED DRAWER 7, Y5N ONE ×2 (06:53→13:48)
[2016-12-21 08:41] LABS: ANION GAP 10 (8-16); CALCIUM 7.7 mg/dL (8.5-10.1); CO2 27 mmol/L (21-32); CREATININE 0.6 mg/dL (0.7-1.3); GLUCOSE,RANDOM 124 mg/dL (74-106); MAGNESIUM 1.7 mg/dL (1.8-2.4)
--- NOTE | 2016-12-21 09:06 | PN ---
Progress Note (short form) - Note Progress Note: LESS PAIN AND MORE MOTION IN KNEE IMP: RESOLVING GOUTY FLARE PLAN: HYDRATION, NSAIDS AND CHOLTRACINE PRN
[2016-12-21] MEDS: POLYETHYLENE GLYCOL 3350 119 GM BTL PO SCH (10:26)
[2016-12-21] MEDS: LEVOFLOXACIN 500 MG IVPB 100 ML IVPB SCH (10:29)
[2016-12-21 11:50] LABS: PHOSPHOROUS 2.1 mg/dL (2.5-4.9)
[2016-12-21] MEDS ORDERED: MAGNESIUM SULF 50% (8.12 MEQ/2 ML-1 GM VIAL) IVPB ONE (12:00)
[2016-12-21] MEDS: KCL 10 MEQ IVPB 100 ML IVPB SCH ×3 (12:20→19:36)
[2016-12-21] MEDS: COLCHICINE 0.6 MG TABLET (FP) PO PRN (14:10)
--- NOTE | 2016-12-21 15:53 | PN ---
Progress Note, Physician History of Present Illness: Pt still with lose stool, no abd pain, no fever. Pt w/o cough, CP, N, V. Pt. c/o Left knee pain, seen by Ortho; pain is slightly better - Current Medication List Current Medications: Active Medications Colchicine (Colcrys -) 0.6 mg PO Q8H PRN Last Admin: 12/21/16 14:10 Dose: 0.6 mg Metronidazole (Flagyl 500mg Premixed Ivpb -) 100 mls @ 100 mls/hr IVPB Q6H-IV [facility] Last Admin: 12/21/16 08:53 Dose: 100 mls/hr Levofloxacin (Levaquin 500 Mg Premixed Ivpb -) 100 mls @ 100 mls/hr IVPB DAILY [facility] Last Admin: 12/21/16 10:29 Dose: 100 mls/hr Mesalamine (Rowasa Enema -) 4 gm RC HS [facility] Last Admin: 12/20/16 21:26 Dose: 4 gm Mesalamine (Asacol Hd -) 800 mg PO TID [facility] Last Admin: 12/21/16 13:51 Dose: 800 mg Polyethylene Glycol (Miralax (For Daily Use) -) 17 gm PO DAILY [facility] Last Admin: 12/21/16 10:26 Dose: 17 gm - Objective Vital Signs: Vital Signs Temperature 98.9 F 12/21/16 10:00 Pulse Rate 94 H 12/21/16 10:00 Respiratory Rate 18 12/21/16 10:00 Blood Pressure 138/72 12/21/16 10:00 O2 Sat by Pulse Oximetry (%) 95 12/20/16 21:00 Constitutional: Yes: No Distress, Calm Cardiovascular: Yes: Regular Rate and Rhythm, S1, S2 Respiratory: Yes: Regular, CTA Bilaterally. No: Rales Gastrointestinal: Yes: Normal Bowel Sounds, Soft. No: Tenderness Extremities: Yes: Other (Left knee is not swollen, still painful with palpation of medial aspect, no calor, no erythema, no discharge) Edema: No Labs: CBC, BMP 12/20/16 06:35 12/21/16 06:30 INR, PTT INR 1.30 (0.82-1.09) H 12/17/16 07:30 Problem List - Problems (1) Acute colitis Code(s): K52.9 - NONINFECTIVE GASTROENTERITIS AND COLITIS, UNSPECIFIED (2) Colitis Code(s): K52.9 - NONINFECTIVE GASTROENTERITIS AND COLITIS, UNSPECIFIED (3) Fecal impaction in rectum Code(s): K56.41 - FECAL IMPACTION (4) Lower abdominal pain Code(s): R10.30 - LOWER ABDOMINAL PAIN, UNSPECIFIED (5) Hypokalemia Assessment/Plan: still requires replacement Code(s): E87.6 - HYPOKALEMIA (6) Poor appetite Code(s): R63.0 - ANOREXIA (7) Hypomagnesemia Assessment/Plan: still requires replacement Code(s): E83.42 - HYPOMAGNESEMIA (8) Left medial knee pain Assessment/Plan: Seen by charla Snowden'ed with Gout Code(s): M25.562 - PAIN IN LEFT KNEE (9) Gout attack Code(s): M10.9 - GOUT, UNSPECIFIED Assessment/Plan IV abtx GI consult appreciated. Colorectal Sx consult appreciated. s/p colonoscopy ( + colitis) To replete K, Mg Naproxene and (Pantoprazole) added for Gout Tx (and GI prophylaxis) Colchicine PRN AM labs
[2016-12-21] MEDS: PANTOPRAZOLE 20 MG TABLET (FP) PO SCH (16:58)
[2016-12-21] MEDS: NAPROXEN 250 MG TABLET (FP) PO SCH (22:08)
[2016-12-21] MEDS: MESALAMINE 4 GM/60 ML ENEMA RC SCH (22:08)
[2016-12-22] MEDS: METRONIDAZOLE 500 MG PREMIXED 100 ML IVPB SCH ×4 (03:00→21:48)
[2016-12-22] MEDS: MESALAMINE 800 MG TABLET.DR PO SCH ×3 (06:12→21:48)
[2016-12-22 08:12] LABS: ANION GAP 10 (8-16); CALCIUM 7.8 mg/dL (8.5-10.1); CO2 26 mmol/L (21-32); CREATININE 0.7 mg/dL (0.7-1.3); GLUCOSE,RANDOM 118 mg/dL (74-106)
--- NOTE | 2016-12-22 09:19 | PN ---
Progress Note (short form) - Note Progress Note: Ortho Pt seen and examined, feeling better decr pain, decr swelling, incr rom, nvi a/p PT continue colchicine pain control d/w Dr. Winkler
[2016-12-22] MEDS ORDERED: PT OWN MED DRAWER 7, Y5N ONE ×3 (10:02→19:48)
[2016-12-22] MEDS: POLYETHYLENE GLYCOL 3350 119 GM BTL PO SCH (10:07)
[2016-12-22] MEDS: NAPROXEN 250 MG TABLET (FP) PO SCH ×2 (10:08→21:49)
[2016-12-22] MEDS: PANTOPRAZOLE 20 MG TABLET (FP) PO SCH (10:09)
[2016-12-22] MEDS: KCL 10 MEQ IVPB 100 ML IVPB SCH ×3 (10:09→12:15)
[2016-12-22] MEDS: LEVOFLOXACIN 500 MG IVPB 100 ML IVPB SCH (13:17)
--- NOTE | 2016-12-22 21:47 | PN ---
Progress Note, Physician History of Present Illness: Pt still with lose stool, no abd pain, no fever. Pt w/o cough, CP, N, V. Pt. c/o Left knee pain, seen by Ortho; pain is slightly better but didn't feel than can try PT - Current Medication List Current Medications: Active Medications Colchicine (Colcrys -) 0.6 mg PO Q8H PRN Last Admin: 12/21/16 14:10 Dose: 0.6 mg Metronidazole (Flagyl 500mg Premixed Ivpb -) 100 mls @ 100 mls/hr IVPB Q6H-IV [facility] Last Admin: 12/22/16 14:31 Dose: 100 mls/hr Levofloxacin (Levaquin 500 Mg Premixed Ivpb -) 100 mls @ 100 mls/hr IVPB DAILY [facility] Last Admin: 12/22/16 13:17 Dose: 100 mls/hr Mesalamine (Rowasa Enema -) 4 gm RC HS [facility] Last Admin: 12/21/16 22:08 Dose: 4 gm Mesalamine (Asacol Hd -) 800 mg PO TID [facility] Last Admin: 12/22/16 13:16 Dose: 800 mg Naproxen (Naprosyn -) 250 mg PO BID [facility] Last Admin: 12/22/16 10:08 Dose: 250 mg Pantoprazole Sodium (Protonix -) 20 mg PO DAILY [facility] Last Admin: 12/22/16 10:09 Dose: 20 mg Polyethylene Glycol (Miralax (For Daily Use) -) 17 gm PO DAILY [facility] Last Admin: 12/22/16 10:07 Dose: Not Given - Objective Vital Signs: Vital Signs Temperature 99 F 12/22/16 17:32 Pulse Rate 91 H 12/22/16 17:32 Respiratory Rate 20 12/22/16 21:00 Blood Pressure 122/70 12/22/16 17:32 O2 Sat by Pulse Oximetry (%) 95 12/22/16 21:00 Constitutional: Yes: No Distress, Calm Cardiovascular: Yes: Regular Rate and Rhythm, S1, S2 Respiratory: Yes: Regular, CTA Bilaterally. No: Rales Gastrointestinal: Yes: Normal Bowel Sounds, Soft. No: Palpable Mass, Tenderness Extremities: Yes: Other (medial aspect of left knee still painful with movements , but is improved) Edema: No Neurological: Yes: Alert, Oriented Labs: CBC, BMP 12/20/16 06:35 12/22/16 06:00 INR, PTT INR 1.30 (0.82-1.09) H 12/17/16 07:30 Problem List - Problems (1) Acute colitis Code(s): K52.9 - NONINFECTIVE GASTROENTERITIS AND COLITIS, UNSPECIFIED (2) Colitis Code(s): K52.9 - NONINFECTIVE GASTROENTERITIS AND COLITIS, UNSPECIFIED (3) Fecal impaction in rectum Code(s): K56.41 - FECAL IMPACTION (4) Lower abdominal pain Code(s): R10.30 - LOWER ABDOMINAL PAIN, UNSPECIFIED (5) Hypokalemia Assessment/Plan: still requires replacement Code(s): E87.6 - HYPOKALEMIA (6) Poor appetite Code(s): R63.0 - ANOREXIA (7) Hypomagnesemia Code(s): E83.42 - HYPOMAGNESEMIA (8) Left medial knee pain Assessment/Plan: Seen by charla Snowden'ed with Gout Code(s): M25.562 - PAIN IN LEFT KNEE (9) Gout attack Code(s): M10.9 - GOUT, UNSPECIFIED Assessment/Plan IV abtx GI consult appreciated. Colorectal Sx consult appreciated. s/p colonoscopy ( + colitis) To replete K, Mg Naproxene and (Pantoprazole) added for Gout Tx (and GI prophylaxis) Colchicine PRN Case was d/w pt. and pt.'s dg( at bed side); pt with decreased PO intake ; to make an effort for improvement AM labs
[2016-12-22] MEDS: MESALAMINE 4 GM/60 ML ENEMA RC SCH (21:48)
[2016-12-23] MEDS: METRONIDAZOLE 500 MG PREMIXED 100 ML IVPB SCH ×4 (02:13→21:37)
[2016-12-23] MEDS: MESALAMINE 800 MG TABLET.DR PO SCH ×3 (06:19→21:39)
[2016-12-23 07:21] LABS: ANION GAP 10 (8-16); CALCIUM 7.9 mg/dL (8.5-10.1); CO2 25 mmol/L (21-32); CREATININE 0.6 mg/dL (0.7-1.3); GLUCOSE,RANDOM 118 mg/dL (74-106); MAGNESIUM 1.9 mg/dL (1.8-2.4)
[2016-12-23] MEDS: PANTOPRAZOLE 20 MG TABLET (FP) PO SCH (09:30)
[2016-12-23] MEDS: COLCHICINE 0.6 MG TABLET (FP) PO PRN (09:31)
[2016-12-23] MEDS: NAPROXEN 250 MG TABLET (FP) PO SCH ×2 (09:32→21:38)
[2016-12-23] MEDS: POLYETHYLENE GLYCOL 3350 119 GM BTL PO SCH (09:32)
--- NOTE | 2016-12-23 09:46 | PN ---
Progress Note, Physician History of Present Illness: Pt still with lose stool, no abd pain, no fever. Pt w/o cough, CP, N, V. Pt. c/o Left knee pain, seen by Ortho; pain is slightly better, for PT today. - Current Medication List Current Medications: Active Medications Colchicine (Colcrys -) 0.6 mg PO Q8H PRN Last Admin: 12/23/16 09:31 Dose: 0.6 mg Metronidazole (Flagyl 500mg Premixed Ivpb -) 100 mls @ 100 mls/hr IVPB Q6H-IV [facility] Last Admin: 12/23/16 09:27 Dose: 100 mls/hr Levofloxacin (Levaquin 500 Mg Premixed Ivpb -) 100 mls @ 100 mls/hr IVPB DAILY [facility] Last Admin: 12/22/16 13:17 Dose: 100 mls/hr Potassium Chloride (Potassium Chloride 10 Meq Premix Ivpb -) 100 mls @ 100 mls/ hr IVPB Q60M [facility] Stop: 12/23/16 12:44 Mesalamine (Rowasa Enema -) 4 gm RC HS [facility] Last Admin: 12/22/16 21:48 Dose: 4 gm Mesalamine (Asacol Hd -) 800 mg PO TID [facility] Last Admin: 12/23/16 06:19 Dose: 800 mg Naproxen (Naprosyn -) 250 mg PO BID [facility] Last Admin: 12/23/16 09:32 Dose: 250 mg Pantoprazole Sodium (Protonix -) 20 mg PO DAILY [facility] Last Admin: 12/23/16 09:30 Dose: 20 mg Polyethylene Glycol (Miralax (For Daily Use) -) 17 gm PO DAILY [facility] Last Admin: 12/23/16 09:32 Dose: Not Given - Objective Vital Signs: Vital Signs Temperature 98.1 F 12/23/16 09:00 Pulse Rate 102 H 12/23/16 09:00 Respiratory Rate 18 12/23/16 09:00 Blood Pressure 114/59 12/23/16 09:00 O2 Sat by Pulse Oximetry (%) 95 12/22/16 21:00 Constitutional: Yes: No Distress, Calm Cardiovascular: Yes: Regular Rate and Rhythm, S1, S2 Respiratory: Yes: Regular, CTA Bilaterally. No: Rales Gastrointestinal: Yes: Normal Bowel Sounds, Soft. No: Tenderness Edema: No Neurological: Yes: Alert, Oriented Labs: CBC, BMP 12/20/16 06:35 12/23/16 06:15 INR, PTT INR 1.30 (0.82-1.09) H 12/17/16 07:30 Problem List - Problems (1) Acute colitis Code(s): K52.9 - NONINFECTIVE GASTROENTERITIS AND COLITIS, UNSPECIFIED (2) Colitis Code(s): K52.9 - NONINFECTIVE GASTROENTERITIS AND COLITIS, UNSPECIFIED (3) Fecal impaction in rectum Code(s): K56.41 - FECAL IMPACTION (4) Lower abdominal pain Code(s): R10.30 - LOWER ABDOMINAL PAIN, UNSPECIFIED (5) Hypokalemia Assessment/Plan: still requires replacement Code(s): E87.6 - HYPOKALEMIA (6) Poor appetite Code(s): R63.0 - ANOREXIA (7) Hypomagnesemia Code(s): E83.42 - HYPOMAGNESEMIA (8) Left medial knee pain Code(s): M25.562 - PAIN IN LEFT KNEE (9) Gout attack Assessment/Plan: better Code(s): M10.9 - GOUT, UNSPECIFIED Assessment/Plan IV abtx GI consult appreciated. Colorectal Sx consult appreciated. s/p colonoscopy ( + colitis) To replete K. Naproxene (and Pantoprazole) added for Gout Tx (and GI prophylaxis) Colchicine PRN I encourage pt to increase PO intake and to make an effort to participate in PT activities. AM labs
[2016-12-23] MEDS: LEVOFLOXACIN 500 MG IVPB 100 ML IVPB SCH (11:24)
[2016-12-23] MEDS: KCL 10 MEQ IVPB 100 ML IVPB SCH ×2 (12:48→13:42)
[2016-12-23] MEDS: POTASSIUM CHLORIDE ORAL LIQUID 20 MEQ/15 ML PO SCH ×2 (13:42→21:38)
[2016-12-23] MEDS: MESALAMINE 4 GM/60 ML ENEMA RC SCH (21:38)
[2016-12-23] MEDS ORDERED: POTASSIUM CHLORIDE ORAL LIQUID 20 MEQ/15 ML PO SCH (22:00)
[2016-12-24] MEDS: METRONIDAZOLE 500 MG PREMIXED 100 ML IVPB SCH ×2 (02:07→08:45)
[2016-12-24] MEDS: MESALAMINE 800 MG TABLET.DR PO SCH ×3 (06:27→22:01)
[2016-12-24 08:02] LABS: ANION GAP 10 (8-16); CALCIUM 7.9 mg/dL (8.5-10.1); CO2 24 mmol/L (21-32); GLUCOSE,RANDOM 116 mg/dL (74-106); MAGNESIUM 1.9 mg/dL (1.8-2.4)
[2016-12-24 08:09] LABS: CREATININE 0.6 mg/dL (0.7-1.3)
[2016-12-24] MEDS: PANTOPRAZOLE 20 MG TABLET (FP) PO SCH (09:44)
[2016-12-24] MEDS: POLYETHYLENE GLYCOL 3350 119 GM BTL PO SCH (09:45)
[2016-12-24] MEDS: NAPROXEN 250 MG TABLET (FP) PO SCH (09:45)
[2016-12-24] MEDS: POTASSIUM CHLORIDE ORAL LIQUID 20 MEQ/15 ML PO SCH ×2 (09:45→21:58)
[2016-12-24] MEDS: LEVOFLOXACIN 500 MG IVPB 100 ML IVPB SCH (09:46)
--- NOTE | 2016-12-24 13:36 | PN ---
GI Progress Note Subjective: Spoke with daughter Pooja today. She was concerned that someone told her of cancer on biopsies. I explained that there was no cancer noted on biopsies however i discussed the finding of colitis. Continued loose bowel movements Cooperating with mesalamine enemas - Objective Vital Signs: Vital Signs Temperature 98.1 F 12/24/16 09:00 Pulse Rate 95 H 12/24/16 09:00 Respiratory Rate 18 12/24/16 09:00 Blood Pressure 140/85 12/24/16 09:00 O2 Sat by Pulse Oximetry (%) 95 12/23/16 21:00 Constitutional: Calm Eyes: No: Sclera Icterus Cardiovascular: Yes: Regular Rate and Rhythm Respiratory: Yes: Diminished (at bases b/l) Gastrointestinal Inspection: No: Distention ...Auscultate: Yes: Normoactive Bowel Sounds ...Palpate: No: Tenderness ...Percussion: Yes: Tympanitic (Mildly tympanitic) Edema: No Neurological: Yes: Other (Awake) Labs: CBC, BMP 12/20/16 06:35 12/24/16 06:30 INR, PTT INR 1.30 (0.82-1.09) H 12/17/16 07:30 Hepatic Panel Total Bilirubin 0.7 mg/dL (0.2-1.0) D 12/18/16 08:00 AST 15 U/L (15-37) 12/18/16 08:00 ALT 14 U/L (12-78) 12/18/16 08:00 Alkaline Phosphatase 52 U/L (45-117) 12/18/16 08:00 Albumin 2.8 g/dl (3.4-5.0) L 12/18/16 08:00 Laboratory Tests 12/19/16 06:15 Atypical p-ANCA <1:20 S.cerevisiae IgG Ab <20.0 S. cerevisiae IgG/IgA <20.0 Problem List - Problems (1) Fecal impaction in rectum Assessment/Plan: Resolved Code(s): K56.41 - FECAL IMPACTION (2) Ischemic colitis Assessment/Plan: Suspected given distribution and finding of fecal retention on CT scan, with suspected larger area of stercoral colitis / ulcer in the more distal rectosigmoid Can decrease mesalamine enemas to every other day Continue asacol HD for now Stopped Abx at this point to see if this aids in imporovig diarrhea Low residue diet Ordered FUA given abdominal distention and tympany on physical exam Code(s): K55.9 - VASCULAR DISORDER OF INTESTINE, UNSPECIFIED
[2016-12-24 13:53] LABS: MCH 28.2 pg (25.7-33.7); MEAN CELL VOLUME 85.6 fl (80-96); MEAN PLT VOLUME 8.7 fl (7.5-11.1); PLATELET COUNT 234 K/MM3 (134-434); RDW 16.3 % (11.9-15.9); WHITE BLOOD COUNT 6.9 K/mm3 (4.0-10.0)
--- NOTE | 2016-12-24 17:15 | PN ---
Progress Note (short form) - Note Progress Note: Spoke w/ Dr. Bustamante re: AXR: air distended colon, no air in rectum rectal tube placed and large amount of air expelled from colon with much improved abdominal distention / tympany Continue to monitor. If worsening abdominal distention, may need replacement of rectal tube. I didnt want to keep it in if avoidable given finding of rectosigmoid ulceration / left sided colitis Problem List - Problems (1) Fecal impaction in rectum Code(s): K56.41 - FECAL IMPACTION (2) Ischemic colitis Code(s): K55.9 - VASCULAR DISORDER OF INTESTINE, UNSPECIFIED
--- NOTE | 2016-12-24 20:37 | PN ---
Progress Note, Physician History of Present Illness: Pt still with lose stool, no abd pain, no fever. Pt w/o cough, CP, N, V. Pt. c/o Left knee pain, seen by Ortho; pain is better today, walked with PT. Events were noticed. Pt's daughters at bed side , concerned about his drinking, states that pt is drinking daily ( even lately- although couldn't walk to the bar somebody was driving his); they states that pt is anxious and depressed, asking for depression treatment. - Current Medication List Current Medications: Active Medications Colchicine (Colcrys -) 0.6 mg PO Q8H PRN Last Admin: 12/23/16 09:31 Dose: 0.6 mg Mesalamine (Rowasa Enema -) 4 gm RC HS [facility] Last Admin: 12/23/16 21:38 Dose: 4 gm Mesalamine (Asacol Hd -) 800 mg PO TID [facility] Last Admin: 12/24/16 15:13 Dose: 800 mg Pantoprazole Sodium (Protonix -) 20 mg PO DAILY [facility] Last Admin: 12/24/16 09:44 Dose: 20 mg Polyethylene Glycol (Miralax (For Daily Use) -) 17 gm PO DAILY [facility] Last Admin: 12/24/16 09:45 Dose: Not Given Potassium Chloride (Potassium Chloride Oral Liquid) 40 meq PO BID [facility] Last Admin: 12/24/16 09:45 Dose: 40 meq - Objective Vital Signs: Vital Signs Temperature 98.5 F 12/24/16 17:13 Pulse Rate 100 H 12/24/16 17:13 Respiratory Rate 20 12/24/16 17:13 Blood Pressure 123/72 12/24/16 17:13 O2 Sat by Pulse Oximetry (%) 95 12/24/16 09:00 Constitutional: Yes: No Distress, Calm Cardiovascular: Yes: Regular Rate and Rhythm, S1, S2 Respiratory: Yes: Regular, CTA Bilaterally. No: Rales Gastrointestinal: Yes: Normal Bowel Sounds, Distention, Hyperactive Bowel Sounds. No: Tenderness Edema: No Neurological: Yes: Alert, Oriented Labs: CBC, BMP 12/24/16 13:40 12/24/16 06:30 INR, PTT INR 1.30 (0.82-1.09) H 12/17/16 07:30 Problem List - Problems (1) Acute colitis Code(s): K52.9 - NONINFECTIVE GASTROENTERITIS AND COLITIS, UNSPECIFIED (2) Colitis Code(s): K52.9 - NONINFECTIVE GASTROENTERITIS AND COLITIS, UNSPECIFIED (3) Fecal impaction in rectum Code(s): K56.41 - FECAL IMPACTION (4) Ischemic colitis Code(s): K55.9 - VASCULAR DISORDER OF INTESTINE, UNSPECIFIED (5) Lower abdominal pain Code(s): R10.30 - LOWER ABDOMINAL PAIN, UNSPECIFIED (6) Hypokalemia Code(s): E87.6 - HYPOKALEMIA (7) Poor appetite Code(s): R63.0 - ANOREXIA (8) Hypomagnesemia Code(s): E83.42 - HYPOMAGNESEMIA (9) Left medial knee pain Code(s): M25.562 - PAIN IN LEFT KNEE (10) Gout attack Code(s): M10.9 - GOUT, UNSPECIFIED (11) Alcohol abuse Assessment/Plan: librium Code(s): F10.10 - ALCOHOL ABUSE, UNCOMPLICATED Assessment/Plan s/p Rectal tube. To monitor Librium. Cont meds
[2016-12-24] MEDS ORDERED: chlordiazePOXIDE HCL 25 MG CAPSULE PO PRN (20:40)
[2016-12-24 21:47] LABS: ANISOCYTOSIS OCC; PLATELET ESTIMATE ADEQUATE (NORMAL)
[2016-12-24] MEDS: MESALAMINE 4 GM/60 ML ENEMA RC SCH ×2 (21:47→21:59)
[2016-12-24 21:48] LABS: POLYCHROMASIA RARE
[2016-12-25] MEDS ORDERED: PT OWN MED DRAWER 7, Y5N ONE ×3 (05:41→21:32)
[2016-12-25] MEDS: MESALAMINE 800 MG TABLET.DR PO SCH (05:42)
--- NOTE | 2016-12-25 09:33 | PN ---
Progress Note, Physician History of Present Illness: Pt still with lose stool, no abd pain, no fever. Pt w/o cough, CP, N, V. Pt c/o Left knee pain, seen by Ortho; pain is better today, walked with PT. Pt w/o depression - Current Medication List Current Medications: Active Medications Chlordiazepoxide HCl (Librium -) 25 mg PO Q6H PRN PRN Reason: WITHDRAWAL(CONT SUBST) Colchicine (Colcrys -) 0.6 mg PO Q8H PRN Last Admin: 12/23/16 09:31 Dose: 0.6 mg Mesalamine (Rowasa Enema -) 4 gm RC HS [facility] [place] Last Admin: 12/24/16 21:47 Dose: Not Given Mesalamine (Asacol Hd -) 800 mg PO TID [facility] [place] Last Admin: 12/25/16 05:42 Dose: 800 mg Pantoprazole Sodium (Protonix -) 20 mg PO DAILY [facility] [place] Last Admin: 12/24/16 09:44 Dose: 20 mg Polyethylene Glycol (Miralax (For Daily Use) -) 17 gm PO DAILY [facility] [place] Last Admin: 12/24/16 09:45 Dose: Not Given Potassium Chloride (Potassium Chloride Oral Liquid) 40 meq PO BID [facility] [place] Last Admin: 12/24/16 21:58 Dose: 40 meq - Objective Vital Signs: Vital Signs Temperature 98 F 12/25/16 07:41 Pulse Rate 90 12/25/16 07:41 Respiratory Rate 20 12/25/16 07:41 Blood Pressure 126/55 12/25/16 07:41 O2 Sat by Pulse Oximetry (%) 95 12/24/16 21:00 Constitutional: Yes: No Distress, Calm Cardiovascular: Yes: Regular Rate and Rhythm, S1, S2 Respiratory: Yes: Regular, CTA Bilaterally. No: Rales Gastrointestinal: Yes: Normal Bowel Sounds, Soft, Distention (minimal) Edema: No Neurological: Yes: Alert, Oriented Labs: CBC, BMP 12/24/16 13:40 12/24/16 06:30 INR, PTT INR 1.30 (0.82-1.09) H 12/17/16 07:30 Today labs P. Problem List - Problems (1) Acute colitis Code(s): K52.9 - NONINFECTIVE GASTROENTERITIS AND COLITIS, UNSPECIFIED (2) Colitis Code(s): K52.9 - NONINFECTIVE GASTROENTERITIS AND COLITIS, UNSPECIFIED (3) Fecal impaction in rectum Code(s): K56.41 - FECAL IMPACTION (4) Ischemic colitis Code(s): K55.9 - VASCULAR DISORDER OF INTESTINE, UNSPECIFIED (5) Lower abdominal pain Code(s): R10.30 - LOWER ABDOMINAL PAIN, UNSPECIFIED (6) Hypokalemia Code(s): E87.6 - HYPOKALEMIA (7) Poor appetite Code(s): R63.0 - ANOREXIA (8) Hypomagnesemia Code(s): E83.42 - HYPOMAGNESEMIA (9) Left medial knee pain Code(s): M25.562 - PAIN IN LEFT KNEE (10) Gout attack Code(s): M10.9 - GOUT, UNSPECIFIED (11) Alcohol abuse Code(s): F10.10 - ALCOHOL ABUSE, UNCOMPLICATED Assessment/Plan s/p Rectal tube. To monitor, GI f/u appreciated. Librium. Cont meds Phychiatry consult
[2016-12-25] MEDS: POTASSIUM CHLORIDE ORAL LIQUID 20 MEQ/15 ML PO SCH ×2 (10:29→22:47)
[2016-12-25] MEDS: PANTOPRAZOLE 20 MG TABLET (FP) PO SCH (10:29)
[2016-12-25] MEDS: POLYETHYLENE GLYCOL 3350 119 GM BTL PO SCH (10:29)
--- NOTE | 2016-12-25 10:40 | PN ---
GI Progress Note Subjective: Found walking around floor with physical therapist, examined in his room No focal complaints - Objective Vital Signs: Vital Signs Temperature 98 F 12/25/16 07:41 Pulse Rate 90 12/25/16 07:41 Respiratory Rate 20 12/25/16 07:41 Blood Pressure 126/55 12/25/16 07:41 O2 Sat by Pulse Oximetry (%) 95 12/24/16 21:00 Constitutional: Calm Eyes: No: Sclera Icterus Cardiovascular: Yes: Regular Rate and Rhythm Respiratory: Yes: CTA Bilaterally Gastrointestinal Inspection: No: Distention ...Auscultate: Yes: Normoactive Bowel Sounds ...Palpate: No: Tenderness ...Percussion: Yes: Tympanitic (Improved from previous) Edema: No Neurological: Yes: Alert Labs: CBC, BMP 12/24/16 13:40 12/24/16 06:30 INR, PTT INR 1.30 (0.82-1.09) H 12/17/16 07:30 Problem List - Problems (1) Fecal impaction in rectum Assessment/Plan: Suspected to be the cause of stercoral ulceration / ischemic changes of left colon On rowasa enemas Asacol HD Abdominal distention much improved from yesterday s/p rectal tube decompression. AXR not officially read as of yet but appears improved with air noted in proximal colon Colorectal surgery follow-up. narrowing of anal canal on exam. ? stricture Code(s): K56.41 - FECAL IMPACTION (2) Ischemic colitis Assessment/Plan: Rowasa enemas every other night Code(s): K55.9 - VASCULAR DISORDER OF INTESTINE, UNSPECIFIED
[2016-12-25 11:11] LABS: MCH 28.4 pg (25.7-33.7); MCHC 33.2 g/dl (32.0-35.9); MEAN CELL VOLUME 85.6 fl (80-96); MEAN PLT VOLUME 8.7 fl (7.5-11.1); PLATELET COUNT 233 K/MM3 (134-434); RDW 15.9 % (11.9-15.9); WHITE BLOOD COUNT 5.9 K/mm3 (4.0-10.0)
[2016-12-25 11:37] LABS: ANION GAP 9 (8-16); CALCIUM 8.2 mg/dL (8.5-10.1); CO2 24 mmol/L (21-32); CREATININE 0.7 mg/dL (0.7-1.3); GLUCOSE,RANDOM 113 mg/dL (74-106)
--- NOTE | 2016-12-25 14:03 | CON.PSY ---
Psychiatry Consult Chief Complaint: Daughtermilagros cole patient has beenn drinkingv daily for the past 30yrs, beer. also thinmks he may be depressed. Eating poorly as weell. Symptoms: reports: Appetite Disturbance, Irritability, Anorexic Behavior - Previous Psychiatric Treatment Outpatient: None Inpatient: None - Previous Substance Abuse Treatment Outpatient: None Inpatient: None - Current Medications Current Medications: Active Medications Chlordiazepoxide HCl (Librium -) 25 mg PO Q6H PRN PRN Reason: WITHDRAWAL(CONT SUBST) Colchicine (Colcrys -) 0.6 mg PO Q8H PRN Last Admin: 12/23/16 09:31 Dose: 0.6 mg Mesalamine (Rowasa Enema -) 4 gm RC HS [facility] Last Admin: 12/24/16 21:47 Dose: Not Given Mirtazapine (Remeron -) 15 mg PO HS [facility] Pantoprazole Sodium (Protonix -) 20 mg PO DAILY [facility] Last Admin: 12/25/16 10:29 Dose: 20 mg Potassium Chloride (Potassium Chloride Oral Liquid) 40 meq PO BID [facility] Last Admin: 12/25/16 10:29 Dose: 40 meq - Allergies Allergies: Allergies Allergy/AdvReac Type Severity Reaction Status Date / Time Penicillins Allergy Swelling Verified 12/15/16 10:04 - Current Living Status Usual Living Arrangement: Alone - Current Mental Status Evaluation Appearance: Disheveled Attitude: Guarded, Uncooperative - Affect Affect: Constrictive Appropriateness: Appropriate to Content - Mood Mood: Depressed - Speech/Language Expressive: Coherent - Psychomotor Activity Psychomotor Activity: Hyperactive - Thought Process Thought Process: Circumstantial - Thought Content Hallucinations: Absent Delusions: Absent - Self Perception Self Perception: No Impairment - Cognition Attention: Alert Orientation: Time Memory, Immediate Recall: Intact Memory, Short Term: 2/3 Memory, Remote with Promptin/3 - Concentration Serial Sevens Intact: No Simple Calculations Intact: No - Abstraction Proverb Interpretation: Impaired Judgement: Minimally Impaired - Insight Insight: Intact - Impulse Control Impulse Control: Minimally Impaired - Suicidal Ideation Suicidal Ideation: No - Homicidal Ideation Homicidal Ideation: No Assessment/Plan Start REmeron 15mg po9 hs.
[2016-12-25] MEDS: MIRTAZAPINE 15 MG TABLET (FP) PO SCH (22:47)
[2016-12-26] MEDS: POTASSIUM CHLORIDE ORAL LIQUID 20 MEQ/15 ML PO SCH ×3 (07:31→21:59)
[2016-12-26 08:26] LABS: MCH 28.3 pg (25.7-33.7); MCHC 33.1 g/dl (32.0-35.9); MEAN CELL VOLUME 85.4 fl (80-96); MEAN PLT VOLUME 8.6 fl (7.5-11.1); PLATELET COUNT 230 K/MM3 (134-434); RDW 16.2 % (11.9-15.9); WHITE BLOOD COUNT 5.1 K/mm3 (4.0-10.0)
[2016-12-26] MEDS: PANTOPRAZOLE 20 MG TABLET (FP) PO SCH (09:43)
[2016-12-26 10:03] LABS: PLATELET ESTIMATE ADEQUATE (NORMAL)
--- NOTE | 2016-12-26 10:20 | PN ---
Progress Note, Physician Chief Complaint: none History of Present Illness: pt tolerating some po diet. +BM. no abd pain. Colonoscopy done on 12/18 fails to reveal any anal stricture. found +colitis in sigmoid possibly from sterocoral disease. at that time patient did have difficult CAMRYN because he clinched down pretty tightly. he did had some increased distension and abd xray showed dilated colon and rectal tube was placed to help decompress him. - Current Medication List Current Medications: Active Medications Chlordiazepoxide HCl (Librium -) 25 mg PO Q6H PRN PRN Reason: WITHDRAWAL(CONT SUBST) Colchicine (Colcrys -) 0.6 mg PO Q8H PRN Last Admin: 12/23/16 09:31 Dose: 0.6 mg Mirtazapine (Remeron -) 15 mg PO HS [facility] Last Admin: 12/25/16 22:47 Dose: 15 mg Pantoprazole Sodium (Protonix -) 20 mg PO DAILY [facility] Last Admin: 12/26/16 09:43 Dose: 20 mg Potassium Chloride (Potassium Chloride Oral Liquid) 40 meq PO BID [facility] Last Admin: 12/26/16 09:43 Dose: 40 meq - Objective Vital Signs: Vital Signs Temperature 98.3 F 12/26/16 06:36 Pulse Rate 95 H 12/26/16 06:36 Respiratory Rate 20 12/26/16 06:36 Blood Pressure 117/73 12/26/16 06:36 O2 Sat by Pulse Oximetry (%) 95 12/25/16 21:00 Constitutional: Yes: No Distress, Calm Eyes: Yes: Conjunctiva Clear, EOM Intact HENT: Yes: Atraumatic, Normocephalic Neck: Yes: Supple, Trachea Midline Cardiovascular: Yes: Regular Rate and Rhythm Respiratory: Yes: Regular Gastrointestinal: Yes: Soft. No: Distention, Tenderness ...Rectal Exam: Yes: Deferred Genitourinary: No: CVA Tenderness - Left, CVA Tenderness - Right Musculoskeletal: No: Joint Stiffness, Joint Swelling Extremities: No: Calf Tenderness, Erythema Integumentary: No: Erythema, Rash Neurological: Yes: Alert Psychiatric: Yes: Alert Labs: CBC, BMP 12/26/16 07:00 12/25/16 10:40 INR, PTT INR 1.30 (0.82-1.09) H 12/17/16 07:30 - ....Imaging X-ray: Report Reviewed, Image Reviewed Problem List - Problems (1) Acute colitis Assessment/Plan: no pain tolerating diet probably had some ileus that is resolving (? jose's but it has since resolved ) cont dulcolax suppositories as needed he may benefit from anal manometry as outpt to r/o nonrelaxing puborectalis/ obstructed defecation (Dr. patton [phone]) but this is outpt test and NOT an emergency. clear from surgical standpoint for discharge. Code(s): K52.9 - NONINFECTIVE GASTROENTERITIS AND COLITIS, UNSPECIFIED (2) Lower abdominal pain Code(s): R10.30 - LOWER ABDOMINAL PAIN, UNSPECIFIED
--- NOTE | 2016-12-26 17:52 | PN ---
GI Progress Note Subjective: GI NOte: Yesterday's FUA reevals distension but Ariel denies any abdominal pain , bloating or nausea and did move his bowel today. He ate only bannanas and mild for lunch - Objective Vital Signs: Vital Signs Temperature 98.6 F 12/26/16 16:30 Pulse Rate 99 H 12/26/16 16:30 Respiratory Rate 20 12/26/16 16:30 Blood Pressure 114/64 12/26/16 16:30 O2 Sat by Pulse Oximetry (%) 97 12/26/16 09:00 CBC,CMP WBC 5.1 K/mm3 (4.0-10.0) 12/26/16 07:00 RBC 3.66 M/mm3 (4.00-5.60) L 12/26/16 07:00 Hgb 10.4 GM/dL (11.7-16.9) L 12/26/16 07:00 Hct 31.3 % (35.4-49) L 12/26/16 07:00 MCV 85.4 fl (80-96) 12/26/16 07:00 MCHC 33.1 g/dl (32.0-35.9) 12/26/16 07:00 RDW 16.2 % (11.9-15.9) H 12/26/16 07:00 Plt Count 230 K/MM3 (134-434) 12/26/16 07:00 MPV 8.6 fl (7.5-11.1) 12/26/16 07:00 Neutrophils % 68.0 % (42.8-82.8) 12/26/16 07:00 Lymphocytes % 24.0 % (8-40) D 12/26/16 07:00 Monocytes % 5.0 % (3.8-10.2) 12/26/16 07:00 Eosinophils % 1.0 % (0-4.5) 12/26/16 07:00 Basophils % 1.0 % (0-2.0) 12/26/16 07:00 Band Neutrophils 12.0 % (0-10) H D 12/24/16 13:40 Promyelocytes 1 (0-1) 12/18/16 08:00 Myelocytes 1 % (0-2) 12/26/16 07:00 Reactive Lymphocytes 2 % (0-80) 12/15/16 11:26 Differential Comment Manual diff done 12/26/16 07:00 Platelet Estimate Adequate (NORMAL) 12/26/16 07:00 Polychromasia Rare 12/24/16 13:40 Anisocytosis Occ 12/24/16 13:40 Macrocytosis Occ 12/24/16 13:40 Sodium 140 mmol/L (136-145) 12/25/16 10:40 Potassium 3.8 mmol/L (3.5-5.1) 12/25/16 10:40 Chloride 107 mmol/L (98-107) 12/25/16 10:40 Carbon Dioxide 24 mmol/L (21-32) 12/25/16 10:40 Anion Gap 9 (8-16) 12/25/16 10:40 BUN 18 mg/dL (7-18) 12/25/16 10:40 Creatinine 0.7 mg/dL (0.7-1.3) 12/25/16 10:40 Creat Clearance w eGFR > 60 (>60) 12/18/16 08:00 Random Glucose 113 mg/dL (74-106) H 12/25/16 10:40 Lactic Acid 1.4 mmol/L (0.4-2.0) 12/15/16 14:35 Calcium 8.2 mg/dL (8.5-10.1) L 12/25/16 10:40 Phosphorus 2.6 mg/dL (2.5-4.9) D 12/23/16 06:15 Magnesium 1.9 mg/dL (1.8-2.4) 12/24/16 06:30 Total Bilirubin 0.7 mg/dL (0.2-1.0) D 12/18/16 08:00 AST 15 U/L (15-37) 12/18/16 08:00 ALT 14 U/L (12-78) 12/18/16 08:00 Alkaline Phosphatase 52 U/L (45-117) 12/18/16 08:00 Creatine Kinase 72 IU/L (39-308) 12/15/16 11:26 Troponin I < 0.02 ng/ml (0.00-0.05) 12/15/16 11:26 Total Protein 5.3 g/dl (6.4-8.2) L 12/18/16 08:00 Albumin 2.8 g/dl (3.4-5.0) L 12/18/16 08:00 Lipase 68 U/L (73-393) L 12/15/16 11:26 Constitutional: Calm ...Palpate: Yes: Soft, Other (nontender) Labs: CBC, BMP 12/26/16 07:00 12/25/16 10:40 INR, PTT INR 1.30 (0.82-1.09) H 12/17/16 07:30 Assessment/Plan Encouraged rAiel to eat more. If successful I have no GI objections to discharge.
--- NOTE | 2016-12-26 19:18 | PN ---
Progress Note, Physician History of Present Illness: Pt still with lose stool, no abd pain, no fever. Pt w/o cough, CP, N, V. Pt c/o Left knee pain, seen by Ortho; pain is better today, walking with PT down the hallway. Pt. with decreased PO intake. Pt was seen in AM. - Current Medication List Current Medications: Active Medications Chlordiazepoxide HCl (Librium -) 25 mg PO Q6H PRN PRN Reason: WITHDRAWAL(CONT SUBST) Colchicine (Colcrys -) 0.6 mg PO Q8H PRN Last Admin: 12/23/16 09:31 Dose: 0.6 mg Mirtazapine (Remeron -) 15 mg PO HS [facility] Last Admin: 12/25/16 22:47 Dose: 15 mg Pantoprazole Sodium (Protonix -) 20 mg PO DAILY [facility] Last Admin: 12/26/16 09:43 Dose: 20 mg Potassium Chloride (Potassium Chloride Oral Liquid) 40 meq PO BID [facility] Last Admin: 12/26/16 09:43 Dose: 40 meq - Objective Vital Signs: Vital Signs Temperature 98.6 F 12/26/16 16:30 Pulse Rate 99 H 12/26/16 16:30 Respiratory Rate 20 12/26/16 16:30 Blood Pressure 114/64 12/26/16 16:30 O2 Sat by Pulse Oximetry (%) 97 12/26/16 09:00 Constitutional: Yes: No Distress Cardiovascular: Yes: Regular Rate and Rhythm, S1, S2 Respiratory: Yes: Regular, CTA Bilaterally. No: Rales Gastrointestinal: Yes: Normal Bowel Sounds, Hyperactive Bowel Sounds Edema: No Neurological: Yes: Alert, Oriented Labs: CBC, BMP 12/26/16 07:00 12/25/16 10:40 INR, PTT INR 1.30 (0.82-1.09) H 12/17/16 07:30 Problem List - Problems (1) Acute colitis Code(s): K52.9 - NONINFECTIVE GASTROENTERITIS AND COLITIS, UNSPECIFIED (2) Colitis Code(s): K52.9 - NONINFECTIVE GASTROENTERITIS AND COLITIS, UNSPECIFIED (3) Fecal impaction in rectum Code(s): K56.41 - FECAL IMPACTION (4) Ischemic colitis Code(s): K55.9 - VASCULAR DISORDER OF INTESTINE, UNSPECIFIED (5) Lower abdominal pain Code(s): R10.30 - LOWER ABDOMINAL PAIN, UNSPECIFIED (6) Hypokalemia Code(s): E87.6 - HYPOKALEMIA (7) Poor appetite Code(s): R63.0 - ANOREXIA (8) Hypomagnesemia Code(s): E83.42 - HYPOMAGNESEMIA (9) Left medial knee pain Code(s): M25.562 - PAIN IN LEFT KNEE (10) Gout attack Code(s): M10.9 - GOUT, UNSPECIFIED (11) Alcohol abuse Code(s): F10.10 - ALCOHOL ABUSE, UNCOMPLICATED (12) Depression Assessment/Plan: seen by Dr. Alejandra (Psychiatry) Code(s): F32.9 - MAJOR DEPRESSIVE DISORDER, SINGLE EPISODE, UNSPECIFIED Assessment/Plan s/p Rectal tube. To monitor. GI f/u appreciated. Librium. Cont meds Phychiatry consult appreciated
[2016-12-26] MEDS: MIRTAZAPINE 15 MG TABLET (FP) PO SCH (21:59)
[2016-12-27 08:40] VITALS: BP 118/70; PULSE 89; TEMP 97.4
[2016-12-27] MEDS ORDERED: PT OWN MED DRAWER 7, Y5N ONE (09:47)
[2016-12-27] MEDS: PANTOPRAZOLE 20 MG TABLET (FP) PO SCH (09:52)
[2016-12-27] MEDS: POTASSIUM CHLORIDE ORAL LIQUID 20 MEQ/15 ML PO SCH (09:52)
--- NOTE | 2016-12-27 12:06 | DS ---
Physical Examination Vital Signs: Vital Signs Temperature 97.4 F L 12/27/16 08:00 Pulse Rate 89 12/27/16 08:00 Respiratory Rate 18 12/27/16 08:00 Blood Pressure 118/70 12/27/16 08:00 O2 Sat by Pulse Oximetry (%) 97 12/26/16 21:00 Findings/Remarks: Pt w/o N, V, abd pain, diarrhea. Pt eat most of the breakfast, per pt and pt's nurse. Pt w/o SOB, CP, palp. Constitutional: Yes: No Distress, Calm Cardiovascular: Yes: Regular Rate and Rhythm, S1, S2 Respiratory: Yes: Regular, CTA Bilaterally. No: Rales, Rhonchi Gastrointestinal: Yes: Normal Bowel Sounds, Soft. No: Distention, Palpable Mass , Tenderness Edema: No Neurological: Yes: Alert, Oriented Labs: CBC, BMP 12/26/16 07:00 12/25/16 10:40 Discharge Summary Reason For Visit: COLITIS,BANDEMIA,ABD PAIN Current Active Problems Acute colitis (Acute) Alcohol abuse (Acute) Bandemia (Acute) Colitis (Acute) Depression (Acute) Diarrhea (Acute) Fecal impaction in rectum (Acute) Gout attack (Acute) Hypokalemia (Acute) Hypomagnesemia (Acute) Ischemic colitis (Acute) Left medial knee pain (Acute) Lower abdominal pain (Acute) Poor appetite (Acute) Procedures: Principal: Abd/ pelvis CT scan Other Procedures: CXR. Abd XR. Knee XR Hospital Course: Pt came to ER c/o lower abd pain for few days, abd/ pelvis CT scan c/w recto- sigmoid ischemic colitis, stool impaction. Pt was seen by GI (Dr. Anatoly Carl), Rectal Sx (Dr. Elda Kebede), started on IV abtx, treated medically. Pt was also seen by Psychiatry (Dr. Alejandra), per family request for depression, started on Remeron. Pt also with left knee pain, seen by Ortho (Dr. Winkler) considered to have Gout, started on NSAIDs. Pt improved slowly. Per PT report, based on his improved walking, and per CM, pt doesn't qualify for inpatient Rehab; pt's daughters (saw pt walking with PT) are aware of disposition. Pt to be DC'ed home today with VNS and home PT; pt's daughters are at the bedside to take him home. Condition: Stable - Instructions Diet, Activity, Other Instructions: Low fiber diet. Increase food intake NO alcohol Referrals: Jesus Constantino MD [Staff Physician] - (next week- need BMP) Rishabh Carl DO [Staff Physician] - (in 1 to 2 weeks) Disposition: HOME - Home Medications Comprehensive Discharge Medication List: Ambulatory Orders Aspirin [ASA -] 325 mg PO DAILY 12/24/13
[2016-12-27] MEDS ORDERED: POTASSIUM CHLORIDE TABS 20 MEQ TABLET.ER (FP) PO ONE (12:12)
[2016-12-28] MEDS ORDERED: POTASSIUM CHLORIDE TABS 20 MEQ TABLET.ER (FP) PO SCH (10:00)
== END 2016-12-27 13:58 | disposition home or self-care (01) | DRG 389 ==
LOC: JER 09:55 → JERBED 12:59 → J8W 23:26
PROVIDERS: ADMIT Specialist; ATTEND Specialist
PROC: 0DBN8ZX Excision of Sigmoid Colon, Via Natural or Artificial Opening Endoscopic, Diagnostic (ICD-10-PCS; principal; 2016-12-18 10:45)
DX: K56.41 Fecal impaction (principal); K55.9 Vascular disorder of intestine, unspecified; E87.6 Hypokalemia; R63.0 Anorexia; M17.12 Unilateral primary osteoarthritis, left knee; M10.9 Gout, unspecified; E83.42 Hypomagnesemia; F10.10 Alcohol abuse, uncomplicated; F32.9 Major depressive disorder, single episode, unspecified
CPT/HCPCS: 36415; 71020-TC; 73562-TC-LT; 74020-TC; 74176-TC; 80048; 80053; 81003; 81015; 82550; 83605; 83690; 83735; 84100; 84484; 85025; 85027; 85610; 85730; 86256; 86671; 87040; 87086; 87324; 87449; 88305-TC; 93005; 93010; 93306-TC; 97116-GP; 97161-GP; 99284-25